=== PATIENT | female | born 1985 | race Asian ===

== ENCOUNTER 2017-11-24 13:28 | Emergency (ER) | payer OTHER ==
--- NOTE | 2017-11-24 15:31 | RAD ---
HISTORY: Right knee pain COMPARISONS: None VIEWS: 2, Frontal and lateral views of the right knee FINDINGS: BONE DENSITY: Normal. BONES: There is no displaced fracture. JOINTS: There is no arthropathy. There is no suprapatellar joint effusion or lipohemarthrosis. ALIGNMENT: There is no dislocation. SOFT TISSUES: Unremarkable. OTHER FINDINGS: None. IMPRESSION: NO ACUTE OSSEOUS INJURY. IF SYMPTOMS PERSIST, RECOMMEND REPEAT IMAGING.
--- NOTE | 2017-11-24 17:43 | ED ---
Lower Extremity - HPI Summary HPI Summary: 2 days ago twisted Rt knee while cross country skiing. Has pain w/ ambulating and bending/extending knee. Pain is worse along medial aspect. Denies previous injury here although has injured her Lt knee last year skiing and reports it bothered her some yesterday as well - no pain, weakness, numbness, tingling. Has been icing. No pain meds. - History of Current Complaint Chief Complaint: EDExtremityLower Stated Complaint: RIGHT KNEE PAIN Time Seen by Provider: 11/24/17 16:23 Hx Obtained From: Patient Pain Intensity: 7 - Allergies/Home Medications Allergies/Adverse Reactions: Allergies Allergy/AdvReac Type Severity Reaction Status Date / Time No Known Allergies Allergy Verified 11/24/17 13:36 Home Medications: Home Medications NK [No Home Medications Reported] 11/24/17 [History Confirmed 11/24/17] PMH/Surg Hx/FS Hx/Imm Hx - Immunization History Immunizations Up to Date: Yes Infectious Disease History: No Infectious Disease History: Denies: Traveled Outside the [place] in Last 30 Days - Social History Alcohol Use: Occasionally Substance Use Type: Reports: None Smoking Status (MU): Never Smoked Tobacco Physical Exam Vital Signs On Initial Exam: Initial Vitals Temp Pulse Resp BP Pulse Ox 97.6 F 70 14 113/62 100 11/24/17 13:31 11/24/17 13:31 11/24/17 13:31 11/24/17 13:31 11/24/17 13:31 Diagnostics - Vital Signs Vital Signs Temp Pulse Resp BP Pulse Ox 11/24/17 13:31 97.6 F 70 14 113/62 100 - Laboratory Lab Statement: Any lab studies that have been ordered have been reviewed, and results considered in the medical decision making process. Discharge - Sign-Out/Discharge Documenting (check all that apply): Discharge - Discharge Plan Condition: Stable Disposition: HOME Patient Education Materials: Knee Sprain (ED), Knee Immobilizer (ED), Crutch Instructions (ED) Forms: *Work Release Referrals: No Primary Care Phys,NOPCP [Primary Care Provider] - [facility] [Outside] Additional Instructions: You appear to have a sprain of your right knee involving possibly the medial collateral ligament (MCL) and/or the meniscal cartilage (supportive tissue within the joint). It is advised that you wear her knee immobilizer and use her crutches to ambulate as well as rest, ice, elevate and take ibuprofen with food as needed for pain or swelling. Follow up with her primary care provider in one to 2 weeks. Call tomorrow to schedule an appointment. You may also benefit from physical therapy for this injury as well as your Left knee as you are reporting a previous injury and have what seems to be baseline laxity in your knee joints. A strengthening program through Physical Therapy may aid in current pain and reduce risk of future injuries. *If you develop numbness, tingling, weakness, lack of blood flow within your lower extremity, return to the emergency department - Billing Disposition and Condition Condition: STABLE Disposition: HOME
[2017-11-24 18:35] VITALS: BP 112/63
== END 2017-11-24 18:33 | disposition home or self-care (01) ==
LOC: ED 13:28
DX: S83.91XA Sprain of unspecified site of right knee, initial encounter (principal); M25.561 Pain in right knee; X50.9XXA Other and unspecified overexertion or strenuous movements or postures, initial encounter; Y93.24 Activity, cross country skiing; Y92.9 Unspecified place or not applicable
CPT/HCPCS: 99282

== ENCOUNTER 2019-06-23 05:31 | Inpatient (IN) | payer OTHER ==
[2019-06-23] MEDS ORDERED: Buffered Lidocaine 1% SYRIN* 1 ML/SYRINGE INTRADERM ONE (05:45)
[2019-06-23] MEDS ORDERED: Lactated Ringers 1000 ML Bag* 1,000 ML IV ONE ×2 (05:45→07:38)
[2019-06-23] MEDS ORDERED: Lactated Ringers 1000 ML Bag* 1,000 ML IV SCH ×3 (06:00→14:00)
--- NOTE | 2019-06-23 06:20 | HP ---
General Information - Reason for Visit Ctx started 1.5hr prior to arrival. Minimal leakage of fluid. - General Information Maternal Age: 33 Grav: 1 Para: 0 SAB: 0 IEA: 0 Estimated Due Date: 06/30/19 Determined By: LMP Maternal Blood Type and Rh: B Positive - Results this Serology/RPR Result: Non-Reactive Rubella Result: Immune HBsAg Result: Negative HIV Result: Negative GBS Culture Result: Negative Past Medical History Pertinent Past Medical History: Non-Contributory Pertinent Past Surgical History: None Pertinent Family History: Non-Contributory - Antepartal Records Antepartal Records: Reviewed, Uncomplicated Review of Systems Constitutional: Uncomfortable CV Complaint: No Respiratory: Shortness of Breath: No Genitourinary: Leaking Fluid, No Bleeding Musculoskeletal: Contractions Movement: Normal Exam Allergies/Adverse Reactions: Allergies No Known Allergies Allergy (Verified 11/24/17 13:36) - Measurements Height: 5 ft 3.5 in Weight: 139 lb Weight in lbs: 139.775350 Body Mass Index (BMI): 24.2 Pre- Weight: 114 lb Weight Gained This : 25 lbs and 0 ozs - Exam Breast: Breast Exam Deferred Extremities: No Edema Heart: Normal Rhythm/Heart Sounds HEENT: No Significant Findings Targeted Exam Findings Cervical Exam: 5cm Effacement: 90% Station: 0 Presenting Part: Vertex Membrane Status: Bulging EFM Findings - External Monitor Findings Baseline Heart Rate: 145 External Monitor Findings: Accelerations Present, No Pattern of Variable or Late Decelerations, Variability Moderate, Baseline Stable Contractions: Regular Assessment/Plan - Assessment labor - Plan Plan: Observe - desires epidural, Admit - Anticipate Vaginal Delivery
[2019-06-23 06:22] LABS: ABS Eosinophils 0.1 10^3/ul (0-0.6); ABS Lymphocytes 2.4 10^3/ul (1.0-4.8); ABS Monocytes 0.5 10^3/ul (0-0.8); ABS Neutrophils 4.3 10^3/ul (1.5-7.7); Eosinophil % 1.1 %; Hematocrit 39 % (35-47); Hemoglobin 13.3 g/dL (12.0-16.0); Mean Corpuscular HGB Conc 34 g/dL (31-36); Mean Corpuscular Hemoglobin 33 pg (27-31); Mean Corpuscular Volume 97 fL (80-97); Mean Platelet Volume 11.5 fL (7.4-10.4); Nucleated Red Blood Cells % 0.1; Platelet Count 101 10^3/uL (150-450); Red Blood Count 4.01 10^6 /uL (3.70-4.87); Red Cell Distribution Width 16 % (10-15); White Blood Count 7.4 10^3/uL (3.5-10.8)
[2019-06-23] MEDS ORDERED: OBEPIDURAL* 250 ML EPIDURAL ONE (06:28)
[2019-06-23 06:47] LABS: Urine Benzodiazepine Screen None Detected (None Detect); Urine Opiates Screen None Detected (None Detect)
[2019-06-23] MEDS ORDERED: EPHEDrine (Pressors)* 50 MG/ML VIAL IV PUSH PRN ×2 (07:38)
[2019-06-23] MEDS ORDERED: Famotidine TAB* 20 MG PO PRN (07:38)
[2019-06-23] MEDS ORDERED: Sodium Citrate/Citric Acid* 15 ML UDC PO PRN (07:38)
[2019-06-23] MEDS ORDERED: Phenylephrine 40 MCG/ML SYRINGE IV PUSH PRN ×2 (07:38)
[2019-06-23] MEDS ORDERED: OBEPIDURAL* 250 ML EPIDURAL SCH (08:00)
--- NOTE | 2019-06-23 09:35 | PN ---
Progress Note - Progress Note Date of Service: 06/23/19 Note: Pt is a 33 y/o G1 at 39 weeks, presented in spontaneous labor. Now comfortable with an epidural. Re-examined and found to be 7cm/90%/-1. AROM'd with clear fluid. FHT is 140/moderate/+accels/no decels. Cee q 2-3 minutes. A/P: 33 y/o G1 at 39 weeks in labor - FHT is reactive, cat I - Labor, progressing spontaneously, AROM'd with clear fluid at 930am - RH+/Rubella Immune - GBS negative - Baseline thrombocytopenia - plts 101 on admission - Expectant management, anticipate vaginal delivery DO VINCE Sutton
[2019-06-23] MEDS ORDERED: Glycerin ADULT SUPP PR PRN (13:31)
[2019-06-23] MEDS ORDERED: Acetaminophen TAB* 325 MG PO PRN (13:31)
[2019-06-23] MEDS ORDERED: Oxytocin in LR* 20 UNITS/1,000 ML BAG IVPB SCH (14:00)
[2019-06-23] MEDS ORDERED: Simethicone TAB* 80 MG TAB.CHEW PO SCH (17:30)
--- NOTE | 2019-06-23 17:43 | PROCNOTE ---
[facility] OB: Delivery Note - Delivery A Date of : 06/23/19 Time of : 12:17 Keo Sex: Male Weight at : 7 lb 10 oz Score 1 Minute: 9 Score 5 Minutes: 9 Gestational Age in Weeks and Days at Delivery: 39 Weeks and 0 Days Delivery Method: Spontaneous Vaginal Labor: Spontaneous Amniotic Fluid: Clear Estimated Blood Loss: 300 Anesthesia/Analgesia: CEI for Labor Delivered By: Cindy Santiago Nursery Level of Nursery: Regular/Bedside - Perineum Perineal Injury: Perineal Laceration, 2nd Degree Perineal Injury Comment: labial laceration with repair Perineal Repair: By Delivering Practioner - Events Delivery Events of Note: Pitocin Only After Delivery - Additional Delivery Notes Additional Delivery Notes: G1, now P1 at 39+0 weeks was admitted on 06/23/19 in spontaneous labor. With CEI infusing, pt progressed to complete and complete. of a single, liveborn, male infant OA to [place] followed at 1217 after 38 minutes of pushing. Infant was placed on mother's chest, HR >100, lusty cry, 's 9, 9. Cord was doubly clamped and cut by FOB once pulsations ceased. The placenta delivered spontaneously via mallika at 1224. IVPB Pitocin given. Fundus firm with massage. Perineum and vagina carefully inspected. A second degree laceration with tearing of skin to anus noted and repaired with CEI infusing, under local anesthesia with 1% lidocaine. A small left labial laceration was noted and repaired. Normal anatomy restored; hemostatsis achieved. EBL following delivery 300mL. Pt later had moderate bleeding and an episode of syncope. Bleeding resolved quickly after bladder emptied. EBL later reevaluated and noted to be closer to 700mL. Fundus firm with minimal bleeding at time of note. Male breast feeding. Mother and baby stable at time of note.
[2019-06-23] MEDS ORDERED: Lidocaine 1% INJ* 10 MG/ML 30 ML SDV ONE (18:38)
[2019-06-23] MEDS ORDERED: OXYTOCIN* 10 UNITS/ML 1 ML VIAL ONE (18:38)
[2019-06-23] MEDS: Witch Hazel PAD* JAR TOPICAL PRN (19:52)
[2019-06-23] MEDS: Dibucaine 1% 28.35 GM TUBE PR PRN (19:53)
[2019-06-23] MEDS: Docusate CAP* 100 MG PO SCH ×3 (20:04→22:09)
[2019-06-23] MEDS: Ibuprofen TAB* 600 MG PO SCH ×3 (20:04→22:09)
[2019-06-24 06:26] LABS: ABS Lymphocytes 1.3 10^3/ul (1.0-4.8); ABS Monocytes 0.7 10^3/ul (0-0.8); Eosinophil % 0.4 %; Hematocrit 28 % (35-47); Hemoglobin 9.2 g/dL (12.0-16.0); Lymphocyte % 10.7 %; Mean Corpuscular HGB Conc 33 g/dL (31-36); Mean Corpuscular Hemoglobin 33 pg (27-31); Mean Corpuscular Volume 98 fL (80-97); Mean Platelet Volume 10.8 fL (7.4-10.4); Platelet Count 77 10^3/uL (150-450); Red Blood Count 2.81 10^6 /uL (3.70-4.87); Red Cell Distribution Width 16 % (10-15)
[2019-06-24] MEDS ORDERED: Varicella Virus Vaccine Live* 0.5 ML VIAL SUBCUT ONE (09:00)
[2019-06-24] MEDS: Ferrous Gluconate TAB* 324 MG TAB PO SCH ×2 (09:36→21:16)
[2019-06-24] MEDS: Ibuprofen TAB* 600 MG PO SCH ×2 (17:12→20:51)
[2019-06-24] MEDS: Docusate CAP* 100 MG PO SCH ×2 (17:13→20:51)
[2019-06-25] MEDS: Ibuprofen TAB* 600 MG PO SCH (08:06)
[2019-06-25] MEDS: Ferrous Gluconate TAB* 324 MG TAB PO SCH (08:44)
[2019-06-25 09:15] VITALS: BP 112/65
[2019-06-25] MEDS: Docusate CAP* 100 MG PO SCH (09:50)
[2019-06-25] MEDS: Witch Hazel PAD* JAR TOPICAL PRN (10:06)
[2019-06-25] MEDS: Dibucaine 1% 28.35 GM TUBE PR PRN (10:06)
== END 2019-06-25 14:30 | disposition home or self-care (01) | DRG 807 ==
LOC: MCHOBOUT 05:31 → MCHOB 05:43
PROVIDERS: ADMIT Obstetrics & Gynecology; ATTEND Advanced Practice Midwife
PROC: 10E0XZZ Delivery of Products of Conception, External Approach (ICD-10-PCS; principal; 2019-06-23)
PROC: 0KQM0ZZ Repair Perineum Muscle, Open Approach (ICD-10-PCS; 2019-06-23)
PROC: 10907ZC Drainage of Amniotic Fluid, Therapeutic from Products of Conception, Via Natural or Artificial Opening (ICD-10-PCS; 2019-06-23)
DX: O70.1 Second degree perineal laceration during delivery (principal); Z37.0 Single live birth; O90.81 Anemia of the puerperium; D64.9 Anemia, unspecified; Z3A.39 39 weeks gestation of pregnancy
CPT/HCPCS: 36415; 80307; 85025; 85060; 86850; 86900; 86901; A9270-GY; J2590

== ENCOUNTER 2022-11-06 22:39 | Inpatient (IN) ==
[2022-11-06] MEDS ORDERED: Buffered Lidocaine 1% SYRIN 1 ml INTRADERM ONE (23:06)
[2022-11-06] MEDS: Lactated Ringers 1000 ml BAG 1,000 ML IV ONE (23:20)
[2022-11-06] MEDS ORDERED: OBEPIDURAL (200 ML) 0 ML EPIDURAL ONE (23:33)
[2022-11-06] MEDS ORDERED: Lidocaine 1.5% EPI 1:200,000 30 ML SDV ONE (23:33)
[2022-11-06 23:35] LABS: ABS Eosinophils 0.1 10^3/ul (0-0.6); ABS Lymphocytes 1.3 10^3/ul (1.0-4.8); ABS Monocytes 0.5 10^3/ul (0-0.8); ABS Neutrophils 5.3 10^3/ul (1.5-7.7); Eosinophil % 1.3 %; Hematocrit 33 % (35-47); Hemoglobin 11.1 g/dL (12.0-16.0); Lymphocyte % 18.7 %; Mean Corpuscular HGB Conc 34 g/dL (31-36); Mean Corpuscular Hemoglobin 32 pg (27-31); Mean Corpuscular Volume 96 fL (80-97); Mean Platelet Volume 9.6 fL (7.4-10.4); Platelet Count 121 10^3/uL (150-450); Red Blood Count 3.47 10^6 /uL (3.70-4.87); Red Cell Distribution Width 16 % (10-15); White Blood Count 7.2 10^3/uL (3.5-10.8)
[2022-11-06] MEDS ORDERED: Lactated Ringers 1000 ml BAG 1,000 ML IV SCH (23:45)
[2022-11-06 23:46] LABS: Urine Benzodiazepine Screen None Detected (None Detect); Urine Opiates Screen None Detected (None Detect)
[2022-11-06] MEDS ORDERED: EPINEPHrine SULFITE FREE 1 MG/ML ONE (23:56)
[2022-11-06] MEDS ORDERED: fentaNYL 100 mcg/2 ml 50 MCG/ML VIAL ONE (23:56)
[2022-11-07] MEDS: Lactated Ringers 1000 ml BAG 1,000 ML IV ONE (00:13)
[2022-11-07 01:17] LABS: Urine Appearance Clear; Urine Bilirubin Negative (Negative); Urine Blood Negative (Negative); Urine Color Straw; Urine Glucose Negative (Negative); Urine Ketones Negative (Negative); Urine Nitrite Negative (Negative); Urine Protein Negative (Negative); Urine Specific Gravity 1.006 (1.002-1.030); Urine Urobilinogen Negative (Negative)
[2022-11-07] MEDS ORDERED: Witch Hazel PAD JAR TOPICAL PRN (02:21)
[2022-11-07] MEDS ORDERED: Dibucaine 1% OINT 28.35 GM TUBE PR PRN (02:21)
[2022-11-07] MEDS ORDERED: Oxytocin 10 UNITS/ML 1 ML VIAL IM ONE (02:21)
[2022-11-07] MEDS ORDERED: Glycerin ADULT 2.4 gm SUPP PR PRN (02:21)
[2022-11-07] MEDS ORDERED: Lactated Ringers 1000 ml BAG 1,000 ML IV SCH (03:00)
[2022-11-07] MEDS ORDERED: Lidocaine 1% VIAL 10 MG/ML VIAL 30 ML ONE (13:06)
[2022-11-08 08:09] LABS: ABS Basophils 0.1 10^3/ul (0-0.2); ABS Eosinophils 0.2 10^3/ul (0-0.6); ABS Lymphocytes 1.7 10^3/ul (1.0-4.8); ABS Monocytes 0.5 10^3/ul (0-0.8); Eosinophil % 2.2 %; Hematocrit 32 % (35-47); Hemoglobin 10.7 g/dL (12.0-16.0); Lymphocyte % 20.3 %; Mean Corpuscular HGB Conc 33 g/dL (31-36); Mean Corpuscular Hemoglobin 32 pg (27-31); Mean Corpuscular Volume 97 fL (80-97); Mean Platelet Volume 10.1 fL (7.4-10.4); Platelet Count 101 10^3/uL (150-450); Red Blood Count 3.33 10^6 /uL (3.70-4.87); Red Cell Distribution Width 16 % (10-15); White Blood Count 8.5 10^3/uL (3.5-10.8)
[2022-11-08 08:26] VITALS: BP 95/48
== END 2022-11-08 16:38 | disposition home or self-care (01) | DRG 807 ==
LOC: MCHOBOUT 22:39 → MCHOB 23:17
PROVIDERS: ADMIT Registered Nurse; ATTEND Registered Nurse